=== PATIENT | male | born 1965 | race African-American/Black ===

== ENCOUNTER → 2018-08-31 | Outpatient (CLI) | payer OTHER ==
[~2018-08-31] MED LIST: AUGMENTIN 500-1 EACH PO; LISINOPRIL10 MG PO; TYLENOL WITH C1 EACH PO
--- NOTE | 2018-08-31 09:51 | Diagnostic Imaging Report ---
Exam: Left heel 2 views, left foot, 3 views History: Fracture, ulcer Comparison: None. Findings: Lateral approach plate and screw construct related to fixation of incompletely healed markedly comminuted calcaneal fracture with subtalar joint extension. Surgical hardware is intact. Ulceration along the posterior aspect of the heel without definite underlying cortical erosive or destructive change. The bones of the midfoot and forefoot are otherwise intact with patchy disuse osteopenia. Joint spaces are well-maintained. Impression: Soft tissue ulcer overlying the posterior calcaneus without definite plain film evidence of osteomyelitis. Intact surgical hardware related to operative fixation of incompletely healed markedly comminuted intra-articular calcaneal fracture. 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 Signed by: Dr. Mykel Rivas M.D. on 08/31/2018 9:47 AM
--- NOTE | 2018-08-31 17:03 | Diagnostic Imaging Report ---
Labeled WBC Study Reason for exam: Chronic poorly healing ulcer over the left heel. Comparison: Report: The patient's own white blood cells were labeled with [id number] HMPAO 21.6 mCi by a commercial radiopharmacy. Images of the ankles and feet in orthogonal projections were obtained at 3 hours post administration of the labeled white blood cells. Focal markedly increased tracer is seen within the posterior aspect of the left calcaneus. Small focal areas of increased tracer are seen in the lateral aspect of the left foot tracking with the peroneal artery as it crosses the lateral malleolus. IMPRESSION: Scan evidence of active infection in the posterior aspect of the left calcaneus. Signed by: Dr. Laquita Gilbert M.D. on 08/31/2018 5:00 PM
== END ==
LOC: NM 08:08
PROVIDERS: ATTEND Podiatrist Foot Surgery
DX: S92.002G Unspecified fracture of left calcaneus, subsequent encounter for fracture with delayed healing (principal); L97.429 Non-pressure chronic ulcer of left heel and midfoot with unspecified severity; M85.872 Other specified disorders of bone density and structure, left ankle and foot
CPT/HCPCS: 73630; 73650; 78806; A9521

== ENCOUNTER → 2018-09-03 | Outpatient (CLI) | payer OTHER ==
[~2018-09-03] MED LIST changes: +COLLAGENASE OINTMENT 30 GM TUBE ONE; +MINERAL OIL/PETROLAT/GLYCERI 6OZ BTL ONE
[2018-09-03 17:21] LABS: ANION GAP 14.4 mmol/L (8-16); BLOOD UREA NITROGEN 16 mg/dL (7-26); BUN/CREATININE RATIO 12 (6-25); CALCIUM 9.7 mg/dL (8.4-10.2); CARBON DIOXIDE 28 mmol/L (22-29); CHLORIDE 96 mmol/L (98-107); CREATININE, SERUM 1.36 mg/dL (0.72-1.25); EST GLOMERULAR FILTRATION RATE > 60 ML/MIN (60-); GLUCOSE 89 mg/dL (74-118); POTASSIUM 3.4 mmol/L (3.5-5.1); SODIUM 135 mmol/L (136-145)
== END ==
LOC: WCC 15:40
PROVIDERS: ATTEND Podiatrist Foot Surgery
DX: S91.302A Unspecified open wound, left foot, initial encounter (principal); I10 Essential (primary) hypertension; S97.82XA Crushing injury of left foot, initial encounter
CPT/HCPCS: 36415; 80048; 83036; 84134; 84155; 87071; 87075; 87186; 87205

== ENCOUNTER → 2018-09-05 | Outpatient (CLI) | payer OTHER ==
[~2018-09-05] MED LIST changes: -COLLAGENASE OINTMENT 30 GM TUBE ONE; -MINERAL OIL/PETROLAT/GLYCERI 6OZ BTL ONE
--- NOTE | 2018-09-05 16:19 | Diagnostic Imaging Report ---
EXAMINATION: CHEST XRAY LINE PLACEMENT INDICATION: Line placement COMPARISON: None FINDINGS: TUBES and LINES: Right PICC line terminates in the superior vena cava just beyond the confluence of innominate veins. LUNGS: The lung volumes are normal. No focal consolidation or pulmonary edema. PLEURA: No pleural effusion or pneumothorax. HEART AND MEDIASTINUM: The cardiomediastinal silhouette is normal in size and contour. BONES AND SOFT TISSUES: No acute fracture or dislocation. UPPER ABDOMEN: No free air under the diaphragm. IMPRESSION: PICC line terminates in the superior vena cava. Signed by: Ousmane Solomon MD on 09/05/2018 4:16 PM
== END ==
LOC: DX 14:36
PROVIDERS: ATTEND Podiatrist Foot & Ankle Surgery
DX: S91.302A Unspecified open wound, left foot, initial encounter (principal)
CPT/HCPCS: 36569; 71045

== ENCOUNTER → 2018-09-07 | Outpatient (CLI) | payer OTHER ==
[~2018-09-07] MED LIST changes: +COLLAGENASE OINTMENT 30 GM TUBE ONE
== END ==
LOC: WCC 14:06
PROVIDERS: ATTEND Podiatrist Foot & Ankle Surgery
DX: S91.302A Unspecified open wound, left foot, initial encounter (principal); S97.82XA Crushing injury of left foot, initial encounter; B96.89 Other specified bacterial agents as the cause of diseases classified elsewhere; I10 Essential (primary) hypertension

== ENCOUNTER → 2018-09-12 | Outpatient (CLI) | payer OTHER ==
[~2018-09-12] MED LIST changes: -COLLAGENASE OINTMENT 30 GM TUBE ONE
== END ==
LOC: WCC 14:54
PROVIDERS: ATTEND Podiatrist Foot & Ankle Surgery
DX: S91.302A Unspecified open wound, left foot, initial encounter (principal); S97.82XA Crushing injury of left foot, initial encounter; B96.89 Other specified bacterial agents as the cause of diseases classified elsewhere; I10 Essential (primary) hypertension

== ENCOUNTER → 2018-09-14 | Outpatient (CLI) | payer OTHER | LOC: WCC 10:48 | PROVIDERS: ATTEND Internal Medicine Infectious Disease | DX: S91.302A Unspecified open wound, left foot, initial encounter (principal); B96.89 Other specified bacterial agents as the cause of diseases classified elsewhere; M86.172 Other acute osteomyelitis, left ankle and foot; S97.82XA Crushing injury of left foot, initial encounter; I10 Essential (primary) hypertension; Z01.810 Encounter for preprocedural cardiovascular examination; Z01.811 Encounter for preprocedural respiratory examination ==

== ENCOUNTER → 2018-09-17 | Outpatient (CLI) | payer OTHER | LOC: WCC 14:40 | PROVIDERS: ATTEND Podiatrist Foot & Ankle Surgery | DX: S91.302A Unspecified open wound, left foot, initial encounter (principal); B96.89 Other specified bacterial agents as the cause of diseases classified elsewhere; M87.172 Osteonecrosis due to drugs, left ankle; S97.82XA Crushing injury of left foot, initial encounter; I10 Essential (primary) hypertension; Z01.810 Encounter for preprocedural cardiovascular examination; Z01.811 Encounter for preprocedural respiratory examination ==

== ENCOUNTER → 2018-09-17 | Outpatient (CLI) | payer OTHER ==
--- NOTE | 2018-09-17 12:36 | Diagnostic Imaging Report ---
EXAMINATION: CHEST 2 VIEWS INDICATION: Pre-operative COMPARISON: Chest radiograph of 09/05/2018 FINDINGS: TUBES and LINES: Right PICC line terminates in the SVC. LUNGS: The lungs are well-inflated. No focal consolidation or pulmonary edema. Mild subsegmental atelectasis at the left lung base. PLEURA: No pleural effusion or pneumothorax. HEART AND MEDIASTINUM: The cardiomediastinal silhouette is normal in size and contour. BONES AND SOFT TISSUES: No acute fracture or dislocation. UPPER ABDOMEN: No free air under the diaphragm. IMPRESSION: No focal pneumonia or pulmonary edema. Signed by: Ousmane Solomon MD on 09/17/2018 12:33 PM
== END ==
LOC: RAD 11:24
PROVIDERS: ATTEND Internal Medicine Infectious Disease
DX: Z01.810 Encounter for preprocedural cardiovascular examination (principal)
CPT/HCPCS: 71046; 93005

== ENCOUNTER → 2018-09-19 | Outpatient (CLI) | payer OTHER | LOC: WCC 14:15 | PROVIDERS: ATTEND Podiatrist Foot & Ankle Surgery | DX: T81.31XA Disruption of external operation (surgical) wound, not elsewhere classified, initial encounter (principal); M86.172 Other acute osteomyelitis, left ankle and foot; S91.302A Unspecified open wound, left foot, initial encounter; M79.672 Pain in left foot; I10 Essential (primary) hypertension; B96.89 Other specified bacterial agents as the cause of diseases classified elsewhere; Z01.810 Encounter for preprocedural cardiovascular examination; Z01.811 Encounter for preprocedural respiratory examination ==

== ENCOUNTER → 2018-09-21 | Outpatient (CLI) | payer OTHER | LOC: WCC 10:28 | PROVIDERS: ATTEND Podiatrist Foot & Ankle Surgery | DX: T81.31XA Disruption of external operation (surgical) wound, not elsewhere classified, initial encounter (principal); M86.172 Other acute osteomyelitis, left ankle and foot; S91.302A Unspecified open wound, left foot, initial encounter; M79.672 Pain in left foot; B96.89 Other specified bacterial agents as the cause of diseases classified elsewhere; I10 Essential (primary) hypertension; Z01.810 Encounter for preprocedural cardiovascular examination; Z01.811 Encounter for preprocedural respiratory examination ==

== ENCOUNTER → 2018-09-24 | Outpatient (CLI) | payer OTHER | LOC: WCC 15:56 | PROVIDERS: ATTEND Podiatrist Foot & Ankle Surgery | DX: T81.31XA Disruption of external operation (surgical) wound, not elsewhere classified, initial encounter (principal); M86.172 Other acute osteomyelitis, left ankle and foot; S91.302A Unspecified open wound, left foot, initial encounter; M79.672 Pain in left foot; I10 Essential (primary) hypertension; B96.89 Other specified bacterial agents as the cause of diseases classified elsewhere; Z01.810 Encounter for preprocedural cardiovascular examination; Z01.811 Encounter for preprocedural respiratory examination ==

== ENCOUNTER → 2018-09-26 | Outpatient (CLI) | payer OTHER | LOC: WCC 14:36 | PROVIDERS: ATTEND Podiatrist Foot & Ankle Surgery | DX: T81.31XA Disruption of external operation (surgical) wound, not elsewhere classified, initial encounter (principal); M86.172 Other acute osteomyelitis, left ankle and foot; S91.302A Unspecified open wound, left foot, initial encounter; M79.672 Pain in left foot; I10 Essential (primary) hypertension; B96.89 Other specified bacterial agents as the cause of diseases classified elsewhere; Z01.810 Encounter for preprocedural cardiovascular examination; Z01.811 Encounter for preprocedural respiratory examination ==

== ENCOUNTER → 2018-09-28 | Outpatient (CLI) | payer OTHER | LOC: WCC 11:37 | PROVIDERS: ATTEND Podiatrist Foot & Ankle Surgery | DX: T81.31XA Disruption of external operation (surgical) wound, not elsewhere classified, initial encounter (principal); M86.172 Other acute osteomyelitis, left ankle and foot; S91.302A Unspecified open wound, left foot, initial encounter; M79.672 Pain in left foot; B96.89 Other specified bacterial agents as the cause of diseases classified elsewhere; I10 Essential (primary) hypertension; Z01.810 Encounter for preprocedural cardiovascular examination; Z01.811 Encounter for preprocedural respiratory examination ==

== ENCOUNTER → 2018-10-01 | Outpatient (CLI) | payer OTHER | LOC: WCC 15:17 | PROVIDERS: ATTEND Podiatrist Foot & Ankle Surgery | DX: T81.31XA Disruption of external operation (surgical) wound, not elsewhere classified, initial encounter (principal); M86.172 Other acute osteomyelitis, left ankle and foot; B96.89 Other specified bacterial agents as the cause of diseases classified elsewhere; S91.302A Unspecified open wound, left foot, initial encounter; M79.672 Pain in left foot; I10 Essential (primary) hypertension; Z01.810 Encounter for preprocedural cardiovascular examination; Z01.811 Encounter for preprocedural respiratory examination ==

== ENCOUNTER → 2018-10-03 | Outpatient (CLI) | payer OTHER | LOC: WCC 15:13 | PROVIDERS: ATTEND Podiatrist Foot & Ankle Surgery | DX: T81.31XA Disruption of external operation (surgical) wound, not elsewhere classified, initial encounter (principal); M86.172 Other acute osteomyelitis, left ankle and foot; S91.302A Unspecified open wound, left foot, initial encounter; M79.672 Pain in left foot; I10 Essential (primary) hypertension; B96.89 Other specified bacterial agents as the cause of diseases classified elsewhere; Z01.810 Encounter for preprocedural cardiovascular examination; Z01.811 Encounter for preprocedural respiratory examination ==

== ENCOUNTER → 2018-10-05 | Outpatient (CLI) | payer OTHER ==
[~2018-10-05] MED LIST changes: +MINERAL OIL/PETROLAT/GLYCERI 6OZ BTL ONE
== END ==
LOC: WCC 11:11
PROVIDERS: ATTEND Podiatrist Foot & Ankle Surgery
DX: T81.31XA Disruption of external operation (surgical) wound, not elsewhere classified, initial encounter (principal); M86.172 Other acute osteomyelitis, left ankle and foot; S91.302A Unspecified open wound, left foot, initial encounter; M79.672 Pain in left foot; I10 Essential (primary) hypertension; B96.89 Other specified bacterial agents as the cause of diseases classified elsewhere; Z01.810 Encounter for preprocedural cardiovascular examination; Z01.811 Encounter for preprocedural respiratory examination

== ENCOUNTER → 2018-10-08 | Outpatient (CLI) | payer OTHER ==
[~2018-10-08] MED LIST changes: -MINERAL OIL/PETROLAT/GLYCERI 6OZ BTL ONE
== END ==
LOC: WCC 15:07
PROVIDERS: ATTEND Podiatrist Foot & Ankle Surgery
DX: T81.31XA Disruption of external operation (surgical) wound, not elsewhere classified, initial encounter (principal); M86.172 Other acute osteomyelitis, left ankle and foot; S91.302A Unspecified open wound, left foot, initial encounter; M79.672 Pain in left foot; I10 Essential (primary) hypertension; B96.89 Other specified bacterial agents as the cause of diseases classified elsewhere; Z01.810 Encounter for preprocedural cardiovascular examination; Z01.811 Encounter for preprocedural respiratory examination

== ENCOUNTER → 2018-10-10 | Outpatient (CLI) | payer OTHER | LOC: WCC 11:32 | PROVIDERS: ATTEND Podiatrist Foot & Ankle Surgery | DX: T81.31XA Disruption of external operation (surgical) wound, not elsewhere classified, initial encounter (principal); M86.172 Other acute osteomyelitis, left ankle and foot; S91.302A Unspecified open wound, left foot, initial encounter; M79.672 Pain in left foot; B96.89 Other specified bacterial agents as the cause of diseases classified elsewhere; I10 Essential (primary) hypertension; Z01.810 Encounter for preprocedural cardiovascular examination; Z01.811 Encounter for preprocedural respiratory examination ==

== ENCOUNTER → 2018-10-12 | Outpatient (CLI) | payer OTHER | LOC: WCC 15:37 | PROVIDERS: ATTEND Podiatrist Foot & Ankle Surgery | DX: T81.31XA Disruption of external operation (surgical) wound, not elsewhere classified, initial encounter (principal); M86.172 Other acute osteomyelitis, left ankle and foot; B96.89 Other specified bacterial agents as the cause of diseases classified elsewhere; S91.302A Unspecified open wound, left foot, initial encounter; M79.672 Pain in left foot; I10 Essential (primary) hypertension; Z01.810 Encounter for preprocedural cardiovascular examination; Z01.811 Encounter for preprocedural respiratory examination ==

== ENCOUNTER → 2018-10-15 | Outpatient (CLI) | payer OTHER | LOC: WCC 15:29 | PROVIDERS: ATTEND Podiatrist Foot & Ankle Surgery | DX: T81.31XA Disruption of external operation (surgical) wound, not elsewhere classified, initial encounter (principal); M86.172 Other acute osteomyelitis, left ankle and foot; S91.302A Unspecified open wound, left foot, initial encounter; M79.672 Pain in left foot; I10 Essential (primary) hypertension; B96.89 Other specified bacterial agents as the cause of diseases classified elsewhere; Z01.810 Encounter for preprocedural cardiovascular examination; Z01.811 Encounter for preprocedural respiratory examination ==

== ENCOUNTER → 2018-10-17 | Outpatient (CLI) | payer OTHER | LOC: WCC 03:00 | PROVIDERS: ATTEND Podiatrist Foot & Ankle Surgery | DX: T81.31XA Disruption of external operation (surgical) wound, not elsewhere classified, initial encounter (principal); M86.172 Other acute osteomyelitis, left ankle and foot; S91.302A Unspecified open wound, left foot, initial encounter; M79.672 Pain in left foot; B96.89 Other specified bacterial agents as the cause of diseases classified elsewhere; I10 Essential (primary) hypertension; Z01.810 Encounter for preprocedural cardiovascular examination; Z01.811 Encounter for preprocedural respiratory examination ==

== ENCOUNTER → 2018-10-19 | Outpatient (CLI) | payer OTHER | LOC: WCC 12:56 | PROVIDERS: ATTEND Podiatrist Foot & Ankle Surgery | DX: T81.31XA Disruption of external operation (surgical) wound, not elsewhere classified, initial encounter (principal); M86.172 Other acute osteomyelitis, left ankle and foot; S91.302A Unspecified open wound, left foot, initial encounter; M79.672 Pain in left foot; I10 Essential (primary) hypertension; B96.89 Other specified bacterial agents as the cause of diseases classified elsewhere; Z01.810 Encounter for preprocedural cardiovascular examination; Z01.811 Encounter for preprocedural respiratory examination ==

== ENCOUNTER → 2018-10-23 | Outpatient (CLI) | payer OTHER | LOC: WCC 15:47 | PROVIDERS: ATTEND Podiatrist Foot & Ankle Surgery | DX: T81.31XA Disruption of external operation (surgical) wound, not elsewhere classified, initial encounter (principal); M86.172 Other acute osteomyelitis, left ankle and foot; S91.302A Unspecified open wound, left foot, initial encounter; M79.672 Pain in left foot; B96.89 Other specified bacterial agents as the cause of diseases classified elsewhere; I10 Essential (primary) hypertension; Z01.810 Encounter for preprocedural cardiovascular examination; Z01.811 Encounter for preprocedural respiratory examination ==

== ENCOUNTER → 2018-10-25 | Outpatient (CLI) | payer OTHER | LOC: WCC 11:44 | PROVIDERS: ATTEND Podiatrist Foot & Ankle Surgery | DX: T81.31XA Disruption of external operation (surgical) wound, not elsewhere classified, initial encounter (principal); M86.172 Other acute osteomyelitis, left ankle and foot; S91.302A Unspecified open wound, left foot, initial encounter; M79.672 Pain in left foot; I10 Essential (primary) hypertension; B96.89 Other specified bacterial agents as the cause of diseases classified elsewhere; Z01.810 Encounter for preprocedural cardiovascular examination; Z01.811 Encounter for preprocedural respiratory examination ==

== ENCOUNTER → 2018-10-29 | Outpatient (CLI) | payer OTHER | LOC: WCC 15:35 | PROVIDERS: ATTEND Podiatrist Foot & Ankle Surgery | DX: T81.31XA Disruption of external operation (surgical) wound, not elsewhere classified, initial encounter (principal); M86.172 Other acute osteomyelitis, left ankle and foot; S91.302A Unspecified open wound, left foot, initial encounter; M79.672 Pain in left foot; I10 Essential (primary) hypertension; B96.89 Other specified bacterial agents as the cause of diseases classified elsewhere; Z01.810 Encounter for preprocedural cardiovascular examination; Z01.811 Encounter for preprocedural respiratory examination ==

== ENCOUNTER → 2018-10-31 | Outpatient (CLI) | payer OTHER | LOC: WCC 16:00 | PROVIDERS: ATTEND Podiatrist Foot & Ankle Surgery | DX: T81.31XA Disruption of external operation (surgical) wound, not elsewhere classified, initial encounter (principal); M86.172 Other acute osteomyelitis, left ankle and foot; S91.302A Unspecified open wound, left foot, initial encounter; M79.672 Pain in left foot; I10 Essential (primary) hypertension; B96.89 Other specified bacterial agents as the cause of diseases classified elsewhere; Z01.810 Encounter for preprocedural cardiovascular examination; Z01.811 Encounter for preprocedural respiratory examination ==

== ENCOUNTER → 2018-11-02 | Outpatient (CLI) | payer OTHER | LOC: WCC 16:47 | PROVIDERS: ATTEND Podiatrist Foot & Ankle Surgery | DX: T81.31XA Disruption of external operation (surgical) wound, not elsewhere classified, initial encounter (principal); M86.172 Other acute osteomyelitis, left ankle and foot; S91.302A Unspecified open wound, left foot, initial encounter; M79.672 Pain in left foot; I10 Essential (primary) hypertension; B96.89 Other specified bacterial agents as the cause of diseases classified elsewhere; Z01.810 Encounter for preprocedural cardiovascular examination; Z01.811 Encounter for preprocedural respiratory examination ==

== ENCOUNTER → 2018-11-07 | Outpatient (CLI) | payer OTHER ==
[~2018-11-07] MED LIST changes: +MINERAL OIL/PETROLAT/GLYCERI 6OZ BTL ONE
== END ==
LOC: WCC 15:47
PROVIDERS: ATTEND Podiatrist Foot & Ankle Surgery
DX: T81.31XA Disruption of external operation (surgical) wound, not elsewhere classified, initial encounter (principal); M86.172 Other acute osteomyelitis, left ankle and foot; S91.302A Unspecified open wound, left foot, initial encounter; M79.672 Pain in left foot; I10 Essential (primary) hypertension; B96.89 Other specified bacterial agents as the cause of diseases classified elsewhere; Z01.810 Encounter for preprocedural cardiovascular examination; Z01.811 Encounter for preprocedural respiratory examination

== ENCOUNTER → 2018-11-09 | Outpatient (CLI) | payer OTHER ==
[~2018-11-09] MED LIST changes: -MINERAL OIL/PETROLAT/GLYCERI 6OZ BTL ONE
== END ==
LOC: WCC 15:31
PROVIDERS: ATTEND Podiatrist Foot & Ankle Surgery
DX: T81.31XA Disruption of external operation (surgical) wound, not elsewhere classified, initial encounter (principal); M86.172 Other acute osteomyelitis, left ankle and foot; S91.302A Unspecified open wound, left foot, initial encounter; M79.672 Pain in left foot; I10 Essential (primary) hypertension; B96.89 Other specified bacterial agents as the cause of diseases classified elsewhere; Z01.810 Encounter for preprocedural cardiovascular examination; Z01.811 Encounter for preprocedural respiratory examination

== ENCOUNTER → 2018-11-12 | Outpatient (CLI) | payer OTHER | LOC: WCC 16:08 | PROVIDERS: ATTEND Podiatrist Foot Surgery | DX: T81.31XA Disruption of external operation (surgical) wound, not elsewhere classified, initial encounter (principal); M86.172 Other acute osteomyelitis, left ankle and foot; S91.302A Unspecified open wound, left foot, initial encounter; M79.672 Pain in left foot; I10 Essential (primary) hypertension; B96.89 Other specified bacterial agents as the cause of diseases classified elsewhere; Z01.810 Encounter for preprocedural cardiovascular examination; Z01.811 Encounter for preprocedural respiratory examination ==

== ENCOUNTER → 2018-11-14 | Outpatient (CLI) | payer OTHER | LOC: WCC 15:39 | PROVIDERS: ATTEND Podiatrist Foot & Ankle Surgery | DX: T81.31XA Disruption of external operation (surgical) wound, not elsewhere classified, initial encounter (principal); M86.172 Other acute osteomyelitis, left ankle and foot; S91.302A Unspecified open wound, left foot, initial encounter; M79.672 Pain in left foot; I10 Essential (primary) hypertension; B96.89 Other specified bacterial agents as the cause of diseases classified elsewhere; Z01.810 Encounter for preprocedural cardiovascular examination; Z01.811 Encounter for preprocedural respiratory examination ==

== ENCOUNTER → 2018-11-16 | Outpatient (CLI) | payer OTHER | LOC: WCC 15:50 | PROVIDERS: ATTEND Podiatrist Foot & Ankle Surgery | DX: T81.31XA Disruption of external operation (surgical) wound, not elsewhere classified, initial encounter (principal); M86.172 Other acute osteomyelitis, left ankle and foot; S91.302A Unspecified open wound, left foot, initial encounter; M79.672 Pain in left foot; I10 Essential (primary) hypertension; B96.89 Other specified bacterial agents as the cause of diseases classified elsewhere; Z01.810 Encounter for preprocedural cardiovascular examination; Z01.811 Encounter for preprocedural respiratory examination ==

== ENCOUNTER → 2018-11-19 | Outpatient (CLI) | payer OTHER | LOC: WCC 15:43 | PROVIDERS: ATTEND Podiatrist Foot & Ankle Surgery | DX: T81.31XA Disruption of external operation (surgical) wound, not elsewhere classified, initial encounter (principal); M86.172 Other acute osteomyelitis, left ankle and foot; S91.302A Unspecified open wound, left foot, initial encounter; M79.672 Pain in left foot; I10 Essential (primary) hypertension; B96.89 Other specified bacterial agents as the cause of diseases classified elsewhere; Z01.810 Encounter for preprocedural cardiovascular examination; Z01.811 Encounter for preprocedural respiratory examination ==

== ENCOUNTER → 2018-11-21 | Outpatient (CLI) | payer OTHER | LOC: WCC 15:48 | PROVIDERS: ATTEND Podiatrist Foot Surgery | DX: T81.31XA Disruption of external operation (surgical) wound, not elsewhere classified, initial encounter (principal); M86.172 Other acute osteomyelitis, left ankle and foot; S91.302A Unspecified open wound, left foot, initial encounter; M79.672 Pain in left foot; I10 Essential (primary) hypertension; B96.89 Other specified bacterial agents as the cause of diseases classified elsewhere; Z01.810 Encounter for preprocedural cardiovascular examination; Z01.811 Encounter for preprocedural respiratory examination ==

== ENCOUNTER → 2018-11-23 | Outpatient (CLI) | payer OTHER | LOC: WCC 15:32 | PROVIDERS: ATTEND Podiatrist Foot & Ankle Surgery | DX: T81.31XA Disruption of external operation (surgical) wound, not elsewhere classified, initial encounter (principal); M86.172 Other acute osteomyelitis, left ankle and foot; S91.302A Unspecified open wound, left foot, initial encounter; M79.672 Pain in left foot; B96.89 Other specified bacterial agents as the cause of diseases classified elsewhere; I10 Essential (primary) hypertension; Z01.810 Encounter for preprocedural cardiovascular examination; Z01.811 Encounter for preprocedural respiratory examination ==

== ENCOUNTER → 2018-11-26 | Outpatient (CLI) | payer OTHER | LOC: WCC 15:42 | PROVIDERS: ATTEND Podiatrist Foot & Ankle Surgery | DX: T81.31XA Disruption of external operation (surgical) wound, not elsewhere classified, initial encounter (principal); M86.172 Other acute osteomyelitis, left ankle and foot; S91.302A Unspecified open wound, left foot, initial encounter; M79.672 Pain in left foot; I10 Essential (primary) hypertension; B96.89 Other specified bacterial agents as the cause of diseases classified elsewhere; Z01.810 Encounter for preprocedural cardiovascular examination; Z01.811 Encounter for preprocedural respiratory examination ==

== ENCOUNTER → 2018-11-28 | Outpatient (CLI) | payer OTHER | LOC: WCC 02:45 | PROVIDERS: ATTEND Podiatrist Foot & Ankle Surgery | DX: T81.31XA Disruption of external operation (surgical) wound, not elsewhere classified, initial encounter (principal); M86.172 Other acute osteomyelitis, left ankle and foot; S91.302A Unspecified open wound, left foot, initial encounter; M79.672 Pain in left foot; I10 Essential (primary) hypertension; B96.89 Other specified bacterial agents as the cause of diseases classified elsewhere; Z01.810 Encounter for preprocedural cardiovascular examination; Z01.811 Encounter for preprocedural respiratory examination ==

== ENCOUNTER → 2018-11-30 | Outpatient (CLI) | payer OTHER | LOC: WCC 15:50 | PROVIDERS: ATTEND Podiatrist Foot & Ankle Surgery | DX: T81.31XA Disruption of external operation (surgical) wound, not elsewhere classified, initial encounter (principal); M86.172 Other acute osteomyelitis, left ankle and foot; S91.302A Unspecified open wound, left foot, initial encounter; M79.672 Pain in left foot; I10 Essential (primary) hypertension; B96.89 Other specified bacterial agents as the cause of diseases classified elsewhere; Z01.810 Encounter for preprocedural cardiovascular examination; Z01.811 Encounter for preprocedural respiratory examination ==

== ENCOUNTER → 2018-12-05 | Outpatient (CLI) | payer OTHER ==
[~2018-12-05] MED LIST changes: +MINERAL OIL/PETROLAT/GLYCERI 6OZ BTL ONE
== END ==
LOC: WCC 16:53
PROVIDERS: ATTEND Podiatrist Foot & Ankle Surgery
DX: T81.31XA Disruption of external operation (surgical) wound, not elsewhere classified, initial encounter (principal); M86.172 Other acute osteomyelitis, left ankle and foot; S91.302A Unspecified open wound, left foot, initial encounter; M79.672 Pain in left foot; I10 Essential (primary) hypertension; B96.89 Other specified bacterial agents as the cause of diseases classified elsewhere; Z01.810 Encounter for preprocedural cardiovascular examination; Z01.811 Encounter for preprocedural respiratory examination

== ENCOUNTER → 2018-12-07 | Outpatient (CLI) | payer OTHER ==
[~2018-12-07] MED LIST changes: -MINERAL OIL/PETROLAT/GLYCERI 6OZ BTL ONE
== END ==
LOC: WCC 15:56
PROVIDERS: ATTEND Podiatrist Foot & Ankle Surgery
DX: T81.31XA Disruption of external operation (surgical) wound, not elsewhere classified, initial encounter (principal); M86.172 Other acute osteomyelitis, left ankle and foot; S91.302A Unspecified open wound, left foot, initial encounter; M79.672 Pain in left foot; I10 Essential (primary) hypertension; B96.89 Other specified bacterial agents as the cause of diseases classified elsewhere; Z01.810 Encounter for preprocedural cardiovascular examination; Z01.811 Encounter for preprocedural respiratory examination

== ENCOUNTER → 2018-12-10 | Outpatient (CLI) | payer OTHER | LOC: WCC 15:36 | PROVIDERS: ATTEND Podiatrist Foot & Ankle Surgery | DX: T81.31XA Disruption of external operation (surgical) wound, not elsewhere classified, initial encounter (principal); S91.302A Unspecified open wound, left foot, initial encounter; M79.672 Pain in left foot; I10 Essential (primary) hypertension; Z01.810 Encounter for preprocedural cardiovascular examination; Z01.811 Encounter for preprocedural respiratory examination ==

== ENCOUNTER → 2018-12-13 | Outpatient (CLI) | payer OTHER | LOC: WCC 15:57 | PROVIDERS: ATTEND Podiatrist Foot & Ankle Surgery | DX: T81.31XA Disruption of external operation (surgical) wound, not elsewhere classified, initial encounter (principal); S91.302A Unspecified open wound, left foot, initial encounter; M79.672 Pain in left foot; I10 Essential (primary) hypertension; Z01.810 Encounter for preprocedural cardiovascular examination; Z01.811 Encounter for preprocedural respiratory examination ==

== ENCOUNTER → 2018-12-19 | Outpatient (CLI) | payer OTHER | LOC: WCC 16:05 | PROVIDERS: ATTEND Podiatrist Foot & Ankle Surgery | DX: T81.31XA Disruption of external operation (surgical) wound, not elsewhere classified, initial encounter (principal); S91.302A Unspecified open wound, left foot, initial encounter; M79.672 Pain in left foot; I10 Essential (primary) hypertension; Z01.810 Encounter for preprocedural cardiovascular examination; Z01.811 Encounter for preprocedural respiratory examination ==